=== PATIENT | male | born 1980 | race Caucasian/White ===

== ENCOUNTER 2016-10-02 12:05 | Outpatient (CLI) | payer OTHER | END 2016-10-02 23:59 | DX: I12.9 Hypertensive chronic kidney disease with stage 1 through stage 4 chronic kidney disease, or unspecified chronic kidney disease (principal); E78.5 Hyperlipidemia, unspecified; N18.9 Chronic kidney disease, unspecified ==

== ENCOUNTER 2016-12-02 09:05 | Outpatient (CLI) | payer OTHER | END 2016-12-02 09:06 | disposition home or self-care (01) | DX: E78.5 Hyperlipidemia, unspecified (principal); N18.9 Chronic kidney disease, unspecified; I12.9 Hypertensive chronic kidney disease with stage 1 through stage 4 chronic kidney disease, or unspecified chronic kidney disease ==

== ENCOUNTER → 2017-01-18 | Outpatient (CLI) | payer OTHER ==
[2017-01-23 16:41] LABS: CALCULATED TOTAL (E+NE) URINE 19 (9-74); DOPAMINE URINE 115 (40-390); EPINEPHRINE URINE 3 (2-16); NOREPINEPHRINE URINE 16 (7-65)
== END ==
LOC: LAB 08:00
PROVIDERS: ATTEND Family Medicine
DX: Z53.9 Procedure and treatment not carried out, unspecified reason (principal)
CPT/HCPCS: 81599; 82384; 82575; 83835; 84155; 84156

== ENCOUNTER 2017-01-19 09:56 | Outpatient (CLI) | payer OTHER ==
[2017-01-19 10:48] LABS: CALCIUM 9.5 mg/dL (8.5-10.3); CREATININE 1.4 mg/dL (0.6-1.2); POTASSIUM 4.9 mmol/L (3.5-5.0)
[2017-01-19 11:04] LABS: CORTISOL 19.7 ug/dL
[2017-01-28 04:33] LABS: ALDO/PRA RATIO 5.9 Ratio (0.9-28.9)
== END 2017-01-19 09:57 | disposition home or self-care (01) ==
LOC: LAB 09:56
PROVIDERS: ATTEND Family Medicine
DX: I12.9 Hypertensive chronic kidney disease with stage 1 through stage 4 chronic kidney disease, or unspecified chronic kidney disease (principal); N18.9 Chronic kidney disease, unspecified; R80.9 Proteinuria, unspecified
CPT/HCPCS: 36415; 80048; 81599; 82088; 82384; 82533; 82575; 83835; 83970; 84155; 84156; 84244

== ENCOUNTER 2017-01-31 07:31 | Outpatient (CLI) | payer OTHER ==
--- NOTE | 2017-01-31 12:28 | Ultrasound Report ---
RENAL ULTRASOUND: 01/31/2017 CLINICAL INDICATION: Chronic kidney disease, hypertension. TECHNIQUE: Real-time scanning was performed with labor representative static images obtained. FINDINGS: The right kidney measures 8.8 x 4.7 x 4.7 cm, and the left kidney measures 9.7 x 6.2 x 5.5 cm. Both kidneys demonstrate increased cortical echogenicity. There is a 1.7 cm cyst in the upper pole of the right kidney. No hydronephrosis, solid renal mass, or perinephric collection is seen. Prevoid, the bladder measures 9.4 x 8.7 x 8.5 cm, yielding a prevoid volume of 371 mL. Bilateral ure teral jets are visualized. No significant postvoid residual. IMPRESSION: ECHOGENIC KIDNEYS, COMPATIBLE WITH MEDICAL RENAL DISEASE. NO HYDRONEPHROSIS OR SOLID RE NAL MASS. NO SIGNIFICANT POSTVOID RESIDUAL. JOB #: [id number] EXT JOB #:[id number]
== END 2017-01-31 07:32 | disposition home or self-care (01) ==
LOC: DI 07:31
PROVIDERS: ATTEND Family Medicine
DX: N18.9 Chronic kidney disease, unspecified (principal); R80.9 Proteinuria, unspecified; I10 Essential (primary) hypertension
CPT/HCPCS: 76770

== ENCOUNTER 2022-03-26 12:21 | Emergency (ER) | payer OTHER ==
[2022-03-26 12:34] VITALS: BP 167/93
--- NOTE | 2022-03-26 12:46 | ED Physician Documentation ---
PD HPI UPPER EXT INJURY - Stated complaint Stated Complaint: LEFT HAND LAC - Chief complaint Chief Complaint: Laceration - History obtained from History obtained from: Patient - History of Present Illness Location: Left, Hand (laceration to dorsal MCP over knuckles ring and middle fingers. was using small chainsaw for cleaning fenceline at home, reached a branch to hold with left hand and the saw kicked in his right hand, with teeth cutting dorsum hand.), Finger Where injury occurred: Home Timing - onset: How many hours ago (1), Today Timing - details: Abrupt onset, Still present Worsened by: Moving (pain in middle finger MCP with finger extension. Index finger ROM flexes strongly but unable to extend at all.), Palpating Associated symptoms: Weakness. No: Numbness, Discolored Contributing factors: No: Prior ortho surgery Similar symptoms before: Has not had sx before Recently seen: Not recently seen Review of Systems Neurologic: reports: Focal weakness. denies: Generalized weakness, Numbness, Near syncope PD PAST MEDICAL HISTORY - Past Medical History Cardiovascular: None Respiratory: None Endocrine/Autoimmune: None - Present Medications Home Medications: Ambulatory Orders Medication Instructions Recorded Confirmed HYDROcod/ACETAM 5/325 [[place] 5/325] 1 ea PO Q6H PRN #15 tablet 03/26/22 Naproxen 250 mg PO TID 7 Days #20 tablet 03/26/22 cephALEXin [Keflex] 500 mg PO TID #20 cap 03/26/22 - Allergies Allergies/Adverse Reactions: Allergies Allergy/AdvReac Type Severity Reaction Status Date / Time No Known Drug Allergies Allergy Verified 03/26/22 12:35 PD ED PE NORMAL - Vitals Vital signs reviewed: Yes - General General: Alert and oriented X 3, Well developed/nourished, Other (appears in some pain due to hand. ) - Derm Derm: Normal color, Warm and dry - Neuro Neuro: Alert and oriented X 3, No sensory deficit, Normal speech, Other (dorsal MCP index finger with 2 cm laceration without FB, mild bleeding only. Eval shows full thickness ext tendon lac and unable to extend finger at all. Middle finger with horizontal lac as well, with partial thickness of the tendon visibly torn. He is able to extend with about 2/3 of strength.) Results - Vitals Vitals: Vital Signs - 24 hr 03/26/22 12:28 Temperature 36.9 C Heart Rate 100 Respiratory 16 Rate Blood Pressure 167/93 H O2 Saturation 100 Oxygen O2 Source Room air - Rads (name of study) hand xray Radiology: Prelim report reviewed (no fractures nor bony abnormality. ), See rad report Procedures - General procedure General procedure: Anesth local with lido 1 % with epi and had good relief of his pain. Explored showed tendon lacs and I could not see the proximal end of index finger tendon. PD MEDICAL DECISION MAKING - ED course Complexity details: reviewed results, considered differential (small lacerations but right over dorsal MCP with unable to extend index finger and weaker middle. Presume tendon injuries. ), d/w senior research consultant (Dr. Manzo - who will see patient in office next couple days and schedule repair. ) Departure - Departure Disposition: 01 Home, Self Care Clinical Impression: Contact with chainsaw as cause of accidental injury Laceration of hand involving extensor tendon Qualifiers: Encounter type: initial encounter Laterality: left Qualified Code(s): S61.412A - Laceration without foreign body of left hand, initial encounter Condition: Stable Record reviewed to determine appropriate education?: Yes Instructions: ED Laceration Tendon Follow-Up: Taiwo Manzo MD [Provider Admit Priv/Credential] - [facility] [Provider Group] Prescriptions: cephALEXin [Keflex] 500 mg PO TID #20 cap Naproxen 250 mg PO TID 7 Days #20 tablet HYDROcod/ACETAM 5/325 [[place] 5/325] 1 ea PO Q6H PRN #15 tablet PRN Reason: Pain Comments: I talked with Dr. Manzo, our orthopedist, who said he can do your repair of the extensor tendons and skin wound. He is unable to do it today due to scheduling. Call the office today for an appointment time in the next couple of days. Let them know for sure that you were seen in the ER and we did talk with Dr. Manzo. In Meanwhile you can do regular wound care with cleaning the wound gently once or twice daily and redressing of the area. Use the finger splint to keep the fingers immobile otherwise the rest of the time. Anti-inflammatory of naproxen 3 times daily with food. To that add Tylenol every 4-6 hours if needed for pain or hydrocodone for worse pain. Cephalexin antibiotic as directed over the next week. I transmitted prescriptions to [facility] pharmacy. I am prescribing a short course of narcotic pain medication for you. These are potentially dangerous and addictive medications that should be used carefully. These medications may constipate you. Take an [id number]-ohwqdby stool softener such as docusate twice daily with plenty of water while taking these med ications. If you go 24 hours without a bowel movement, take [id number] MiraLAX, per package instructions. Do not drink or drive while taking these medications. If you received narcotic or sedating medications while in the emergency department do not drive for 24 hours. Store this medication in a safe, secure place and out of reach of children. It is a violation of federal law to give or sell this medication to another person or to use in a manner other than prescribed. The ED will not refill narcotic prescriptions, including prescriptions lost or stolen. You can dispose of unwanted medications at the [facility]'s office or at several pharmacies such as [facility]. You were given a tetanus booster today as well. Discharge Date/Time: 03/26/22 15:02
[2022-03-26] MEDS ORDERED: ACETAMINOPHEN 325 MG TABLET PO STA (13:24)
[2022-03-26] MEDS ORDERED: IBUPROFEN 600 MG TABLET PO STA (13:24)
[2022-03-26] MEDS ORDERED: TETANUS/DIPHTHERIA/PERTUSSIS 0.5 ML SYRINGE IM ONE (13:24)
[2022-03-26] MEDS ORDERED: cephALEXin 250 MG CAPSULE PO STA (14:13)
--- NOTE | 2022-03-26 14:35 | XRAY Report ---
PROCEDURE: Hand 3 View LT INDICATIONS: chainsaw injury MCPs 3/4 TECHNIQUE: 3 views of the hand(s) acquired. COMPARISON: None FINDINGS: Bones: No fractures or dislocations. No suspicious bony lesions. Soft tissues: No suspicious soft tissue calcifications. Unexpected radiopaque foreign bodies. IMPRESSION: No bony injury or unexpected radiopaque foreign bodies after chainsaw injury. Reviewed by: La Nena Rojas MD on 03/26/2022 2:33 PM PDT Approved by: La Nena Rojas MD on 03/26/2022 2:33 PM PDT Station ID: [id number]
== END 2022-03-26 15:02 | disposition home or self-care (01) ==
LOC: ED 12:21
DX: S61.412A Laceration without foreign body of left hand, initial encounter (principal); W27.0XXA Contact with workbench tool, initial encounter; Y93.H9 Activity, other involving exterior property and land maintenance, building and construction; Y92.009 Unspecified place in unspecified non-institutional (private) residence as the place of occurrence of the external cause; Z23 Encounter for immunization; Z71.85 Encounter for immunization safety counseling
CPT/HCPCS: 73130; 90471; 90715; 99283; A9270

== ENCOUNTER 2022-04-03 10:27 | Day surgery (SDC) | payer OTHER ==
[2022-04-03] MEDS ORDERED: CELECOXIB 100 MG CAPSULE PO ONE (10:51)
[2022-04-03] MEDS ORDERED: ACETAMINOPHEN 500 MG TABLET PO ONE (10:51)
[2022-04-03] MEDS ORDERED: CEFAZOLIN 2G/50ML 0.9% NS 2 GM/50 ML BAG IV ONE (10:52)
[2022-04-03] MEDS ORDERED: LACTATED RINGERS 1,000 ML IV ONE (11:26)
[2022-04-03] MEDS ORDERED: LIDOCAINE 1% 50 ML MDV ONE (11:49)
[2022-04-03] MEDS ORDERED: BACITRACIN ZINC OINT 1 PACKET TOP ONE (11:49)
[2022-04-03] MEDS ORDERED: LIDOCAINE MPF 2%-EPI 1:200000 20 ML VIAL ONE (11:49)
[2022-04-03] MEDS ORDERED: BUPIVACAINE 0.25% PF 10 ML VIAL ONE ×2 (11:50→14:26)
[2022-04-03] MEDS ORDERED: ROPIVACAINE 0.5% PF 30 ML VIAL ONE (11:58)
[2022-04-03] MEDS ORDERED: LIDOCAINE-MPF 2% 5 ML VIAL ONE (11:59)
[2022-04-03] MEDS ORDERED: MIDAZOLAM 2 MG/2 ML VIAL ONE (11:59)
[2022-04-03] MEDS ORDERED: fentaNYL 100 MCG/2 ML VIAL ONE (12:00)
[2022-04-03] MEDS ORDERED: PROPOFOL 200 MG/20 ML VIAL IVP ONE (12:53)
[2022-04-03] MEDS ORDERED: fentaNYL 100 MCG/2 ML VIAL IVP PRN (13:08)
[2022-04-03] MEDS ORDERED: ePHEDrine 50 MG/ML VIAL IVP PRN (13:08)
[2022-04-03] MEDS ORDERED: HYDROmorphone 0.5 MG/0.5 ML SYRINGE IVP PRN (13:08)
[2022-04-03] MEDS ORDERED: MORPHINE 2 MG/ML CARPUJECT IVP PRN (13:08)
[2022-04-03] MEDS ORDERED: NALOXONE 0.4 MG/ML VIAL IVP PRN (13:08)
[2022-04-03] MEDS ORDERED: METOCLOPRAMIDE 10 MG/2 ML VIAL IVP PRN (13:08)
[2022-04-03] MEDS ORDERED: ATROPINE ABBOJECT 1 MG/10 ML SYRINGE IVP PRN (13:08)
[2022-04-03] MEDS ORDERED: ONDANSETRON 4 MG/2 ML VIAL IVP PRN (13:08)
--- NOTE | 2022-04-03 13:08 | ANESTHESIA ---
Pre-Anesthesia VS, & Labs - Diagnosis L hand 2nd 3rd finger tendon laceration - Procedure Repair of same, L hand 2nd 3rd tendon lacerations Vital Signs: Temp Pulse Resp BP Pulse Ox 36.8 C 98 16 168/94 H 98 04/03/22 10:53 04/03/22 10:53 04/03/22 10:53 04/03/22 10:53 04/03/22 10:53 Height: 5 ft 8 in Weight (kg): 77.6 kg Body Mass Index: 25.9 BMI Classification: Overweight - NPO >8 hours Home Medications and Allergies Home Medications: Ambulatory Orders Amlodipine Besylate [Norvasc] 15 mg PO QPM 04/02/22 Losartan Potassium [Cozaar] 100 mg PO QPM 04/02/22 Amlodipine Besylate [Norvasc] 15 mg PO QPM 04/02/22 Losartan Potassium [Cozaar] 100 mg PO QPM 04/02/22 Allergies/Adverse Reactions: Allergies Allergy/AdvReac Type Severity Reaction Status Date / Time No Known Drug Allergies Allergy Verified 03/26/22 12:35 Anes History & Medical History - Anesthetic History Anesthesia Complications: reports: No previous complications Family history of Anesthesia Complications: Denies Family history of Malignant Hyperthermia: Denies - Medical History Cardiovascular: reports: Hypertension Pulmonary: reports: None Gastrointestinal: reports: None Urinary: reports: Other Musculoskeletal: reports: None Endocrine/Autoimmune: reports: None Skin: reports: None Psychosocial: reports: Alcohol History of Cancer?: No Exam General: Alert, Oriented x3, Cooperative Dental: WNL Mouth Openin Fingerbreadth Neck Mobility: Normal Mallampati classification: II Thyromental Distance: 4-6 cm Respiratory: Lungs clear, Normal breath sounds, No respiratory distress Cardiovascular: Regular rate Neurological: Normal speech Mental/Cognitive Status: Alert/Oriented X3, Normal for patient Cognitive Status: Within normal limits Plan Anesthesia Type: General, Supraclavicular Block Regional Block: Per Surgeon's request for Post Op pain control Consent for Procedure(s) Verified and Reviewed: Yes Code Status: Attempt Resuscitation ASA classification: 2-Mild systemic disease Is this case an emergency?: No
[2022-04-03] MEDS ORDERED: ACETAMINOPHEN 500 MG TABLET PO PRN (13:26)
[2022-04-03] MEDS ORDERED: oxyCODONE 5 MG TABLET PO PRN (13:26)
[2022-04-03] MEDS ORDERED: ONDANSETRON 4 MG/2 ML VIAL ONE (13:35)
[2022-04-03] MEDS ORDERED: DEXAMETHASONE 4 MG/ML VIAL ONE (13:35)
[2022-04-03] MEDS ORDERED: LACTATED RINGERS 1,000 ML IV SCH (14:00)
[2022-04-03] MEDS ORDERED: BUPIVACAINE 0.25% PF 10 ML VIAL SUBQ ONE (14:11)
[2022-04-03] MEDS: fentaNYL 100 MCG/2 ML VIAL ONE ×3 (14:40→15:05)
[2022-04-03] MEDS ORDERED: LACTATED RINGERS 100 ML IV ONE (14:46)
--- NOTE | 2022-04-03 14:55 | OPERATIVE REPORT ---
Operative Report - General Procedure Date: 04/03/22 Planned Procedure: Repair of extensor tendons left second and third fingers, dorsum of left hand Pre-Op Diagnosis: Lacerations of the extensor tendons to the second and third finger, dorsal Procedure Performed: Repair of extensor tendons left second and third fingers, dorsum left hand Post Op Diagnosis: Same as preoperative diagnosis - Procedure Note Primary Surgeon: Taiwo Manzo MD Secondary Surgeon: OPAL Jean Anesthesia Provider: Sami Wing CRNA Anesthesia Technique: General LMA, Regional block Estimated Blood Loss (mL): 5 Indications: -year-old man who sustained an accidental chainsaw injury to the dorsum of left hand involving the second and third metacarpophalangeal joint regions. He had weakness primarily to the second toe and to a much lesser degree of the third finger with regard to extension. There were no fractures and no penetration of the joint. The injury happened approximately a week ago, irrigated and cleansed at the emergency room, splinted and seen in orthopedic clinic on a delayed basis for repair today. Lacerations are localized over the second and third metacarpal heads, no sign of infection but there is absence of extension to the second finger and weakness to third finger extension. There are no fractures on x-ray of left hand. Informed consent obtained for repair of extensor tendons to left second and third fingers over dorsum of left hand Findings: There was complete rupture of the extensor tendons to the index finger left hand involving both extensors. The disruption occurred just slightly proximal to the extensor ortiz of the metacarpophalangeal joint of left hand and the tendons were retracted about an inch and a half more proximal. The laceration over the third metacarpal was partial and consisted of greater than 50% of the tendonThe metacarpal phalangeal joint capsule was intact to both second and third fingers left hand Complications: None - Other Other Information/Narrative: After satisfactory anesthesia had been obtained, the patient was placed in the supine position with the left arm over arm extension table. A pneumatic tourniquet was applied over the proximal aspect of the left arm over cast padding. The left upper extremity was prepped and draped in a sterile manner in the usual fashion. A timeout procedure was performed by the entire operating room team and all were in agreement. The left upper extremity was exsanguinated and the pneumatic tourniquet was elevated to 200 mmHg.The transverse incisions over the metacarpal heads were extended in a zigzag Richie fashion to more proximal level. This provided good exposure of the capsule and disruption of the extensor tendon. The previous lacerations were sharply debrided. The laceration of the third extensor tendon was just proximal to the extensor ortiz by few millimeters. This defect which was greater than 50% of the width of the tendon was closed with a running 3 oh strata fix suture. This provided for secure repair and scientology of Tendon continuity. The laceration of the third finger also was debrided, extended proximally in a Richie fashion. The zone of injury was identified. Both tendons were retracted and completely severed, again just proximal to the extensor ortiz. 3 oh strata fix suture was utilized for both tendons utilizing a modified Jama approach and an epitenon repair with 4-0 Vicryl.There was secure fixation obtained with the repair. The wounds were irrigated. The tourniquet was deflated after 48 minutes. Hemostasis was achieved electrocautery. The skin was closed with interrupted 4-0 nylon suture, Xeroform, sterile gauze and a padded radial gutter splint to hold the wrist in some extension and the second and third fingers in extension. He received 2 g of Ancef intravenously and tolerated the procedure well. A physician occupational therapist assistant was medically necessary to help with prepping and draping, positioning, protection of vital structures, assistance during the procedure including wound closure, dressing and/or splinting.
[2022-04-03] MEDS ORDERED: oxyCODONE 5 MG TABLET ONE (15:58)
--- NOTE | 2022-04-03 16:03 | ANESTHESIA POST OP EVALUATION ---
Anesthesia Post Eval - Post Anesthesia Eval Vitals: Last Vital Signs Temp 37.2 C 04/03/22 15:18 Pulse 70 04/03/22 15:35 Resp 16 04/03/22 15:35 BP 169/95 H 04/03/22 15:35 Pulse Ox 98 04/03/22 15:35 CV Function Including HR & BP: Stable Pain Control: Satisfactory Nausea & Vomiting: Negative Mental Status: Baseline (Hoarse voice that developed shortly after Versed, fentanyl, and nerve block in pre-op has resolved completely.) Respiratory Status: Airway Patent Hydration Status: Satisfactory Anesthesia Complications: None
[2022-04-03 16:12] VITALS: BP 175/97
== END 2022-04-03 10:28 | disposition home or self-care (01) ==
LOC: SDS 10:27
PROVIDERS: ATTEND Orthopaedic Surgery
DX: S66.321A Laceration of extensor muscle, fascia and tendon of left index finger at wrist and hand level, initial encounter (principal); S66.323A Laceration of extensor muscle, fascia and tendon of left middle finger at wrist and hand level, initial encounter; W29.3XXA Contact with powered garden and outdoor hand tools and machinery, initial encounter; I12.9 Hypertensive chronic kidney disease with stage 1 through stage 4 chronic kidney disease, or unspecified chronic kidney disease; N18.9 Chronic kidney disease, unspecified
CPT/HCPCS: 26418; A9270; J0690; J7120

== ENCOUNTER 2023-06-05 09:07 | Outpatient (CLI) | payer OTHER ==
[2023-06-05 09:37] LABS: BILIRUBIN,URINE NEGATIVE (NEGATIVE); CLARITY,URINE CLEAR (CLEAR); GLUCOSE, URINE (UA) NEGATIVE (NEGATIVE); KETONES,URINE (UA) NEGATIVE (NEGATIVE); LEUKOCYTE ESTERASE, URINE NEGATIVE (NEGATIVE); NITRITE,URINE NEGATIVE (NEGATIVE); OCCULT BLOOD,URINE NEGATIVE (NEGATIVE); PROTEIN,URINE 100 mg/dL (NEGATIVE); UROBILINOGEN,URINE 0.2 (NORMAL) E.U./dL (NORMAL)
== END 2023-06-05 09:08 | disposition home or self-care (01) ==
LOC: LAB 09:07
PROVIDERS: ATTEND Internal Medicine Nephrology
DX: N30.00 Acute cystitis without hematuria (principal)
CPT/HCPCS: 81003